=== PATIENT | male | born 1975 | race Caucasian/White ===

== ENCOUNTER 2020-10-10 10:46 | Emergency (ER) | payer OTHER ==
[~2020-10-10 10:46] MED LIST: AUGMENTIN 500-1 EACH PO; FLEXERIL10 MG PO; IBUPROFEN800 MG PO; MEDROL 4MG DOSEP4 MG PO
== END 2020-10-10 13:15 | disposition home or self-care (01) ==
LOC: FER 10:46
DX: S20.219A Contusion of unspecified front wall of thorax, initial encounter (principal); V47.6XXA Car passenger injured in collision with fixed or stationary object in traffic accident, initial encounter; Y92.410 Unspecified street and highway as the place of occurrence of the external cause
CPT/HCPCS: 71046

== ENCOUNTER 2021-12-05 08:00 | Emergency (ER) | payer OTHER ==
[~2021-12-05 08:00] MED LIST changes: +BACLOFEN 10MG T10 MG PO; +NAPROXEN500 MG PO
[2021-12-05] MEDS ORDERED: PREDNISONE 20MG20 MG PO (09:31)
== END 2021-12-05 15:37 | disposition home or self-care (01) ==
LOC: FER 08:00
DX: M19.011 Primary osteoarthritis, right shoulder (principal); M51.36 Other intervertebral disc degeneration, lumbar region
CPT/HCPCS: 72040; 73030; 96372; J1170; J1885; J7512

== ENCOUNTER 2021-12-10 15:06 | Emergency (ER) | payer OTHER ==
[~2021-12-10 15:06] MED LIST changes: +PREDNISONE 20MG20 MG PO
[2021-12-10 15:32] LABS: BASOPHIL 0.1 % (0-2); EOSINOPHIL 0.4 % (0-5); HCT 40.4 % (42.0-52.0); HGB 13.7 g/dl (13.2-18.0); LYMPHOCYTE 5.8 % (15-48); MCH 31.4 pg (25.0-31.0); MCHC 33.9 g/dL (32.0-36.0); MCV 92.4 fL (78.0-100.0); MONOCYTE 13.3 % (0-12); MPV 8.3 fL (6.0-9.5); NRBC 0; PLT 258 K/uL (150-400); RBC 4.37 M/uL (4.70-6.00); WBC 9.7 K/uL (4.0-10.5)
[2021-12-10 15:38] LABS: INR 1.03 (0.9-1.2); PROTHROMBIN TIME 13.2 SECONDS (11.9-13.9); PTT 26.8 SECONDS (24.9-34.6)
[2021-12-10 15:55] LABS: ALBUMIN 3.5 g/dL (3.4-5.0); BILIRUBIN - TOTAL 0.2 mg/dL (0.2-1.0); BUN/CREAT RATIO (CALC) 7.4 RATIO; CREATININE 0.81 mg/dL (0.67-1.17); GLOBULIN (CALCULATION) 3.9 g/dL; POTASSIUM 3.3 mmol/L (3.5-5.1); TOTAL PROTEIN 7.4 g/dL (6.4-8.2)
== END 2021-12-10 18:15 | disposition home or self-care (01) ==
LOC: FER 15:06
PROVIDERS: Emergency Medicine
DX: U07.1 COVID-19 (principal); M94.0 Chondrocostal junction syndrome [Tietze]; F17.290 Nicotine dependence, other tobacco product, uncomplicated; F17.210 Nicotine dependence, cigarettes, uncomplicated
CPT/HCPCS: 36415; 71045; 71275; 80053; 84484; 85025; 85379; 85610; 85730; 93005; J0780; J1200; J1885; J2405; J7030; Q9967; U0002